=== PATIENT | male | born 1965 | race Caucasian/White ===

== ENCOUNTER → 2021-03-07 | Outpatient (CLI) | payer BC ==
[~2021-03-07] MED LIST: DIOVAN320 MG PO; DOXYCYCLINE 10100 MG PO; FLEXERIL PO; NORCO 5-325 TA1 EACH PO; PREDNISONE 20 M20 M1 PO; PROPOXYPHENE; TESSALON PERLE100 MG PO
== END ==
LOC: M.ULTRA 08:00
PROVIDERS: ATTEND Registered Nurse Diabetes Educator
DX: K76.0 Fatty (change of) liver, not elsewhere classified (principal); K21.00 Gastro-esophageal reflux disease with esophagitis, without bleeding